=== PATIENT | male | born 1935 | race Caucasian/White ===

== ENCOUNTER 2016-04-23 13:16 | Emergency (ER) | payer OTHER ==
[~2016-04-23 13:16] MED LIST: CRDCD180 PO
[2016-04-23 13:38] VITALS: TEMP 36.9
[2016-04-23] MEDS ORDERED: SOD PHOSPHATE/SOD BIPHOSPHATE ENEMA 132 ML BTL PR STA (14:33)
[2016-04-23] MEDS ORDERED: SODIUM CHLORIDE 0.9% 1000ML 1,000 ML IV STA (14:33)
--- NOTE | 2016-04-23 14:35 | EMERGENCY ROOM VISIT NOTE ---
History Report prepared by Brionna: Maurice Juarez Under the Supervision of: Dr. Germaine Colunga M.D. First contact with patient: 14:12 Chief Complaint: CONSTIPATION Stated Complaint: CONSTIPATION Nursing Triage Summary: "I am constipated. I am prone to constipation. 3 weeks ago I became constipated after taking iron tablets. I have been trying at home remedies without relief." I had 2 hydro therapy treatments last week without relief History of Present Illness The patient is an 80 year old male who presents to the Emergency Room with complaints of persistent constipation that started 3 weeks ago. He has a history of constipation. The patient says the constipation started after taking iron tablets. He says usually he can relieve the constipation with home therapies. However, the patient has been using home therapies over the past few weeks, but nothing is working this time. The patient saw his primary care physician, and the physician's recommendation was to eat prunes and have more fiber intake. The patient did that for several days, and was able to eliminate around his blockage but he notes that he is unable to get the blockage out. His primary care physician told him to come to the Emergency Room if he was still constipated. The patient does complain of intermittent chills due to his discomfort associated with the constipation. He has gone to a colon hydrotherapist in the past, and had 2 hydro therapy treatments last week without relief. He states that in the past the hydrotherapy has worked in relieving his constipation. The patient states that the last time he went to the hydrotherapist before last week was 15 years ago. He denies any fevers. Source of History: patient Onset: 3 weeks ago Position: other (global - constipation) Timing: other (persistent) Associated Symptoms: + chills, No fevers Note: Associated symptoms: Patient notes no other associated symptoms. Review of Systems See HPI for pertinent positives & negatives. A total of 10 systems reviewed and were otherwise negative. Past Medical & Surgical Medical Problems: (1) Constipation (2) Skin problem Surgical Problems: (1) H/O removal of testicle Family History FH: heart disease Social History Smoking Status: Never Smoker Marital Status: Housing Status: lives with family Occupation Status: retired Current/Historical Medications Scheduled Diltiazem Hcl Ext Rel (Tiazac), 120 MG PO QAM Polyethylene Glycol 3350 (Miralax), 17 GM PO DAILY Allergies Coded Allergies: Ciprofloxacin (Unverified Allergy, Severe, RASH, 04/23/16) Wheat (Unverified Allergy, Intermediate, VOMITTING/INDIGESTION, 04/23/16) Quinolones (Verified Allergy, Mild, 05/04/09) Physical Exam Vital Signs Date Time Temp Pulse Resp B/P Pulse Ox O2 Delivery O2 Flow Rate FiO2 04/23/16 19:04 89 18 138/93 100 04/23/16 18:12 72 18 169/94 97 Room Air 04/23/16 13:38 36.9 86 18 154/98 99 Room Air Physical Exam CONSTITUTIONAL: No acute distress. HEENT: No icterus, moist mucous membranes NECK: No meningismus, trachea is midline. CARDIOVASCULAR: Regular rate, normal perfusion RESPIRATORY: Unlabored breathing. Clear to auscultation. GASTROINTESTINAL: Non-tender GENITOURINARY: No flank tenderness RECTAL: No impaction. MUSCULOSKELETAL: Full range of motion NEUROLOGIC: No acute gross focal deficits. PSYCHIATRIC: Normal affect SKIN: Normal for ethnicity. Medical Decision & Procedures ER Provider Diagnostic Interpretation: CT results as stated below per my review and radiologist interpretation. CT SCAN OF THE ABDOMEN AND PELVIS WITH IV CONTRAST CLINICAL HISTORY: Constipation. COMPARISON STUDY: No priors. TECHNIQUE: Following the IV administration of 91 cc of Optiray 320, CT scan of the abdomen and pelvis is performed from the lung bases to the proximal femora. Images are reviewed in the axial, sagittal, and coronal planes. IV contrast was administered without complication. Automated dose control exposure was utilized. CT DOSE: 290.96 mGy.cm FINDINGS: Lung bases: The heart is top normal in size and without pericardial effusion. The coronary arteries are densely calcified. There is mild ectasia of the ascending thoracic aorta which measures up to 4.3 cm in diameter. There is a 1.3 cm hyperdense/calcified right middle lobe pulmonary nodule seen on axial image #12. Dependent atelectasis is observed. No airspace consolidation or pleural effusion is identified. There is a moderate hiatal hernia. Liver: The contrast-enhanced liver is normal in size, contour, and attenuation. There is no intrahepatic biliary ductal dilatation. The hepatic veins and portal veins are patent. 2.7 cm indeterminant hypodensity is seen in the left lobe of the liver on axial image #82. Additional subcentimeter hepatic hypodensities are also indeterminant. Gallbladder: Unremarkable. Spleen: Normal in size and attenuation. Pancreas: Unremarkable. Adrenal glands: Unremarkable. Kidneys: There is markedly asymmetric atrophy of the right kidney as compared to the left. There is no hydronephrosis. An extrarenal pelvis is noted on the left. A 1.8 cm enhancing lesion is seen in the lower pole the right kidney on axial image #176. Additional right renal cysts measure up to 2.5 cm. Left renal cysts measure up to 1.7 cm. A 1.1 cm indeterminant lesion in the upper pole the left kidney as seen on image #129. This does not meet CT criteria for a simple cyst. The left kidney enhances homogeneously. There is a circumaortic left renal vein. Abdominal vasculature: The abdominal aorta is normal in course and caliber noting moderate to advanced atherosclerotic calcification. Bowel: Mild wall thickening and edema is identified in the rectosigmoid colon. The proximal colon is normal in appearance. There is no bowel obstruction. The appendix is well-visualized and normal. Peritoneum: There is no intraperitoneal free air or abdominal ascites. Lymphadenopathy: None. Pelvic viscera: The prostate gland is mildly enlarged, measuring 5.5 cm in transverse diameter. The bladder wall appears thickened and trabeculated suggesting the sequelae of chronic outlet obstruction. Skeletal structures: The skeletal structures are osteopenic. There is moderate lumbosacral spondylosis and scoliosis. No lytic or blastic lesions are seen. Soft tissues: There is a lipoma within the left abdominal wall musculature seen on axial image #185. This measures up to 7 cm. IMPRESSION: 1. There is mild wall thickening and edema identified in the rectum and sigmoid colon. Correlate clinically for evidence of a mild nonspecific proctocolitis. 2. No bowel obstruction is seen. 3. There is markedly asymmetric cortical atrophy of the right kidney as compared to the left. 4. There is a 1.8 cm enhancing lesion identified in the lower pole of the right kidney. This should be considered renal cell carcinomas upper abdomen otherwise. Urology follow-up is recommended. 5. A 1.1 cm indeterminant hypodensity is seen in the upper pole of the left kidney. Although this could represent a complex/hemorrhagic cyst, neoplasm is not excluded. 6. There is a 2.7 cm indeterminant hypodensity in the left lobe of the liver. 7. There is mild ectasia of the partially imaged ascending thoracic aorta which measures up to 4.3 cm diameter. 8. Moderate hiatal hernia. 9. 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 10. Additional changes as above. Electronically signed by: Pardeep Higgins M.D. 04/23/2016 6:16 PM Dictated Date/Time: 04/23/2016 6:05 PM Laboratory Results 04/23/16 15:00 Test 04/23/16 15:00 04/23/16 17:15 Anion Gap 12.0 mmol/L (3-11) Estimated GFR () 49.9 Estimated GFR (Non- 43.0 BUN/Creatinine Ratio 5.4 (10-20) Calcium Level 9.1 mg/dl (8.5-10.1) Total Bilirubin 0.7 mg/dl (0.2-1) Aspartate Amino Transf (AST/SGOT) 16 U/L (15-37) Alanine Aminotransferase (ALT/SGPT) 19 U/L (12-78) Alkaline Phosphatase 65 U/L (45-117) Total Protein 6.9 gm/dl (6.4-8.2) Albumin 3.7 gm/dl (3.4-5.0) Globulin 3.2 gm/dl (2.5-4.0) Albumin/Globulin Ratio 1.2 (0.9-2) Urine Color YELLOW Urine Appearance CLEAR (CLEAR) Urine pH 8.0 (4.5-7.5) Urine Specific Zahl 1.000 (1.000-1.030) Urine Protein NEG (NEG) Urine Glucose (UA) NEG (NEG) Urine Ketones NEG (NEG) Urine Occult Blood NEG (NEG) Urine Nitrite NEG (NEG) Urine Bilirubin NEG (NEG) Urine Urobilinogen NEG (NEG) Urine Leukocyte Esterase NEG (NEG) Labs reviewed by ED physician. Medications Administered Medications (Trade) Dose Ordered Sig/Osiris Route Start Time Stop Time Status Last Admin Dose Admin Sodium Biphosphate/ Sodium Phosphate 132 ml 132 ml NOW STAT CO 04/23/16 14:33 04/23/16 14:37 DC 04/23/16 15:09 132 ML Sodium Chloride (Nss 1000ml) 1,000 ml @ 0 mls/hr Q0M STAT IV 04/23/16 14:33 04/23/16 14:37 DC 1/25/17 14:33 0 MLS/HR ED Course 1421: Past medical records reviewed. The patient was evaluated in room B9. A complete history and physical examination was performed. 1433: Ordered NSS 1000 ml @ 0 mls/hr Wide Open IV, Fleet Enema 132 ml CO. 1859: I reevaluated the patient and he is resting comfortably. The patient verbally expressed agreement and understanding of the treatment plan. The patient will be discharged. Medical Decision Differential diagnoses include: constipation, diverticulitis, kidney stone. 80-year-old presented to the emergency department for worsening constipation for several weeks not resolved with an bowel cleansing done by a local spa service. He denies any vomiting or other abdominal pain although he notes mild left lower quadrant discomfort. CT did not reveal obstruction or other obvious acute abnormalities although his mild inflammation possibility of the prostate. Discussed treatment options and patient declined quinolone therapy stating severe allergy in the past. We specifically discussed the small lesions in both kidneys and liver. Patient has a prior history of testicular cancer and states he has known problems with these organs but is not specific as to what those problems are. I discussed with both him and his the possibility of a new cancer in the critical importance of prompt follow-up with the primary doctor to discuss the CAT scan report he was given by me in the emergency department. These abnormal findings were circled to make clear to him what points to discuss with the primary doctor. He was advised to take MiraLAX as needed for constipation pending further conversation with the primary Impression Primary Impression: Constipation Scribe Attestation The scribe's documentation has been prepared under my direction and personally reviewed by me in its entirety. I confirm that the note above accurately reflects all work, treatment, procedures, and medical decision making performed by me. Departure Information Dispostion Home / Self-Care Prescriptions Polyethylene Glycol 3350 (MIRALAX) 1 Pow Pow 17 GM PO DAILY, #527 GM Prov: Germaine Colunga MD 04/23/16 Referrals Antonio Mills M.D. (PCP) Forms HOME CARE DOCUMENTATION FORM, IMPORTANT VISIT INFORMATION Patient Instructions My [facility] Additional Instructions Follow-up with your doctor, CALL TOMORROW, and specifically discuss your CT report you were given in the ED. PLEASE note your quinolone allergy.
[2016-04-23] MEDS ORDERED: DILT120C68 PO (14:48)
[2016-04-23 15:35] LABS: ALT/SGPT 19 U/L (12-78); AST/SGOT 16 U/L (15-37); BLOOD UREA NITROGEN 8 mg/dl (7-18); BUN/CREATININE RATIO 5.4 (10-20); CALCIUM 9.1 mg/dl (8.5-10.1); CARBON DIOXIDE 24 mmol/L (21-32); CHLORIDE 99 mmol/L (98-107); GLUCOSE 114 mg/dl (70-99); POTASSIUM 3.7 mmol/L (3.5-5.1); SODIUM 135 mmol/L (136-145)
[2016-04-23 15:38] LABS: ALB/GLOB RATIO 1.2 (0.9-2); ALKALINE PHOSPHATASE 65 U/L (45-117)
[2016-04-23] MEDS ORDERED: OPTIRAY 320 IV PRN (16:00)
[2016-04-23 17:32] LABS: URINE APPEARANCE CLEAR (CLEAR); URINE BILIRUBIN NEG (NEG); URINE COLOR YELLOW; URINE NITRITE NEG (NEG); UROBILINOGEN NEG (NEG); ZZUR CULT IF INDIC CLEAN CATCH NO
[2016-04-23 17:42] LABS: MANUAL MICROSCOPIC REQUIRED? NO; REVIEW REQ? NO
--- NOTE | 2016-04-23 18:18 | DIAGNOSTIC IMAGING REPORT ---
CT SCAN OF THE ABDOMEN AND PELVIS WITH IV CONTRAST CLINICAL HISTORY: Constipation. COMPARISON STUDY: No priors. TECHNIQUE: Following the IV administration of 91 cc of Optiray 320, CT scan of the abdomen and pelvis is performed from the lung bases to the proximal femora. Images are reviewed in the axial, sagittal, and coronal planes. IV contrast was administered without complication. Automated dose control exposure was utilized. CT DOSE: 290.96 mGy.cm FINDINGS: Lung bases: The heart is top normal in size and without pericardial effusion. The coronary arteries are densely calcified. There is mild ectasia of the ascending thoracic aorta which measures up to 4.3 cm in diameter. There is a 1.3 cm hyperdense/calcified right middle lobe pulmonary nodule seen on axial image #12. Dependent atelectasis is observed. No airspace consolidation or pleural effusion is identified. There is a moderate hiatal hernia. Liver: The contrast-enhanced liver is normal in size, contour, and attenuation. There is no intrahepatic biliary ductal dilatation. The hepatic veins and portal veins are patent. 2.7 cm indeterminant hypodensity is seen in the left lobe of the liver on axial image #82. Additional subcentimeter hepatic hypodensities are also indeterminant. Gallbladder: Unremarkable. Spleen: Normal in size and attenuation. Pancreas: Unremarkable. Adrenal glands: Unremarkable. Kidneys: There is markedly asymmetric atrophy of the right kidney as compared to the left. There is no hydronephrosis. An extrarenal pelvis is noted on the left. A 1.8 cm enhancing lesion is seen in the lower pole the right kidney on axial image #176. Additional right renal cysts measure up to 2.5 cm. Left renal cysts measure up to 1.7 cm. A 1.1 cm indeterminant lesion in the upper pole the left kidney as seen on image #129. This does not meet CT criteria for a simple cyst. The left kidney enhances homogeneously. There is a circumaortic left renal vein. Abdominal vasculature: The abdominal aorta is normal in course and caliber noting moderate to advanced atherosclerotic calcification. Bowel: Mild wall thickening and edema is identified in the rectosigmoid colon. The proximal colon is normal in appearance. There is no bowel obstruction. The appendix is well-visualized and normal. Peritoneum: There is no intraperitoneal free air or abdominal ascites. Lymphadenopathy: None. Pelvic viscera: The prostate gland is mildly enlarged, measuring 5.5 cm in transverse diameter. The bladder wall appears thickened and trabeculated suggesting the sequelae of chronic outlet obstruction. Skeletal structures: The skeletal structures are osteopenic. There is moderate lumbosacral spondylosis and scoliosis. No lytic or blastic lesions are seen. Soft tissues: There is a lipoma within the left abdominal wall musculature seen on axial image #185. This measures up to 7 cm. IMPRESSION: 1. There is mild wall thickening and edema identified in the rectum and sigmoid colon. Correlate clinically for evidence of a mild nonspecific proctocolitis. 2. No bowel obstruction is seen. 3. There is markedly asymmetric cortical atrophy of the right kidney as compared to the left. 4. There is a 1.8 cm enhancing lesion identified in the lower pole of the right kidney. This should be considered renal cell carcinomas upper abdomen otherwise. Urology follow-up is recommended. 5. A 1.1 cm indeterminant hypodensity is seen in the upper pole of the left kidney. Although this could represent a complex/hemorrhagic cyst, neoplasm is not excluded. 6. There is a 2.7 cm indeterminant hypodensity in the left lobe of the liver. 7. There is mild ectasia of the partially imaged ascending thoracic aorta which measures up to 4.3 cm diameter. 8. Moderate hiatal hernia. 9. 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 10. Additional changes as above. Electronically signed by: Pardeep Higgins M.D. 04/23/2016 6:16 PM Dictated Date/Time: 04/23/2016 6:05 PM
[2016-04-23] MEDS ORDERED: POLY335019 PO (18:57)
[2016-04-23 19:04] VITALS: BP 138/93; PULSE 89; O2SAT 100
== END 2016-04-23 19:04 | disposition home or self-care (01) ==
LOC: C.EDB 13:22
DX: K59.00 Constipation, unspecified (principal); Z85.47 Personal history of malignant neoplasm of testis; Z79.899 Other long term (current) drug therapy

== ENCOUNTER 2018-10-03 09:52 | Inpatient (IN) ==
--- OUTSIDE RECORDS SUMMARY | 2018-10-03 09:54 | External Medical Summary | Continuity of Care Document ---
:1935 Author Name Chris Bermudez Address Unavailable Unavailable , Care Team Providers Name Role Phone Unavailable Unavailable Unavailable Problems Active medical history not documented Allergies and Adverse Reactions Allergy history not documented Medications Medications not documented Procedures Procedures not documented Immunizations Immunizations not documented Plan of Treatment Planned Observations Planned Goals not documented Results No Known Results Results not documented
[2018-10-03 10:30] LABS: Basophils # (auto) 0.03 K/uL (0-0.2); Basophils % (auto) 0.3 %; Eosinophils # (auto) 0.06 K/uL (0-0.5); Eosinophils % (auto) 0.6 %; Hematocrit (blood only) 42.4 % (42-52); Hemoglobin 15.1 g/dL (14.0-18.0); Immature Granulocytes # (auto) 0.02 K/uL (0.00-0.02); Immature Granulocytes % (auto) 0.2 %; Lymphocytes # (auto) 2.14 K/uL (1.2-3.4); Lymphocytes % (auto) 23.1 %; Mean Corpuscular Hgb Conc 35.6 g/dL (32-36); Mean Corpuscular Volume 92.4 fL (80-100); Mean Platelet Volume 8.8 fL (7.4-10.4); Monocytes # (auto) 0.53 K/uL (0.11-0.59); Monocytes % (auto) 5.7 %; Neutrophils # (auto) 6.49 K/uL (1.4-6.5); Neutrophils % (auto) 70.1 %; Platelet Count 191 K/uL (130-400); RDW Coefficient of Variation 13.4 % (11.5-14.5); RDW Standard Deviation 45.4 fL (36.4-46.3); Red Blood Count 4.59 M/uL (4.7-6.1); White Blood Count 9.27 K/uL (4.8-10.8)
--- NOTE | 2018-10-03 10:38 | XRay Report ---
XR chest 1V portable HISTORY: 83 years-old Male Chest Pain acute atypical chest pain COMPARISON: Chest radiograph 02/21/2008, CT abdomen and pelvis 04/23/2016 TECHNIQUE: Portable AP view of the chest FINDINGS: Cardiomediastinal and hilar silhouettes are within normal limits. Unchanged calcified granuloma of th e right lower lobe. Probable additional calcified granuloma of the left lung base, 4 mm. No pneumotho rax, pleural effusion, focal airspace consolidation or overt pulmonary edema. Degenerative changes of the shoulders and spine. IMPRESSION: 1. No acute process. 2. Prior granulomatous disease. The above report was generated using voice recognition software. It may contain grammatical, syntax o r spelling errors. Electronically signed by: Dhruv Alexander M.D. 10/03/2018 10:37 AM
[2018-10-03 10:41] LABS: Albumin Level 3.8 gm/dl (3.4-5.0); BUN Creatinine Ratio 12.3 (10-20); Calcium 9.2 mg/dl (8.5-10.1); Creatinine Clr Calc Pharmacy 36.4 ml/min; Est GFR (African American) 52.6; Est GFR (Non-African American) 45.4; Potassium 3.5 mmol/L (3.5-5.1)
[2018-10-03 10:49] LABS: Albumin Globulin Ratio 1.1 (0.9-2); Bilirubin,Total 0.6 mg/dl (0.2-1); Globulin 3.5 gm/dl (2.5-4.0); Total Protein 7.3 gm/dl (6.4-8.2); Troponin I 9.19 ng/ml (0-0.045)
[2018-10-03] MEDS ORDERED: ASPIRIN 81 MG CHEW PO STA (10:57)
[2018-10-03] MEDS ORDERED: Heparin IV Low Dose WITH Bolus STA (11:13)
[2018-10-03] MEDS ORDERED: METOPROLOL TARTRATE 1 MG/ML VIAL IV STA (11:13)
[2018-10-03] MEDS ORDERED: Heparin BOLUS **ED Use Only IV STA (11:21)
--- NOTE | 2018-10-03 11:24 | Emergency Department Note ---
History of Present Illness General Chief complaint: Chest Pain Stated complaint: CHEST PAIN, PAIN IN RT ARM Time Seen by Provider: 10/03/18 10:03 Source: patient and family Mode of arrival: ambulatory Limitations: no limitations History of Present Illness Maximum Pain Intensity: 73 This 83-year-old white male presents with his , for evaluation of right- sided chest and clavicle pain that began last evening. He has had intermittent symptoms since last Thursday. He describes some intermittent nausea, but no vom iting. He denies any scot chest pain. No upper back pain. He does note some tenderness around his shoulder blade. Patient was recently treated for Lyme disease with 3 weeks of doxycycline, which he finished last Thursday. He did get some nausea with that medication and thought his current nausea was residual. His collarbone pain was rather acute last night and intense. He states it is not as bad now as it was last night. It is still focal and reproducible with touch. Right-hand dominant. Home Medications Home Medications Medication Instructions Recorded Confirmed Type [facility] 1 - 2 tab PO PM 10/03/18 10/03/18 History Probiotic 1 cap PO PM 10/03/18 10/03/18 History coenzyme Q10 [CoQ-10] 30 mg PO PM 10/03/18 10/03/18 History garlic 500 mg PO PM 10/03/18 10/03/18 History lutein 20 mg PO PM 10/03/18 10/03/18 History multivitamin 1 tab PO QAM 10/03/18 10/03/18 History omega 5-nbi-lqa-fish oil [Fish Oil] 1 cap PO PM 10/03/18 10/03/18 History aspirin [Ecotrin Low Strength] 81 mg PO QAM 30 Days #30 tab 10/05/18 Rx atorvastatin 40 mg PO QAM 30 Days #30 tab 10/05/18 Rx clopidogrel 75 mg PO QAM 30 Days #30 tab 10/05/18 Rx famotidine 20 mg PO DAILY 30 Days #30 tab 10/05/18 Rx metoprolol tartrate 25 mg PO BID 30 Days #60 tab 10/05/18 Rx nitroglycerin [Nitrostat] 0.4 mg SUBLINGUAL UD PRN #30 tab 10/05/18 Rx Allergies Allergy/AdvReac Type Severity Reaction Status Date / Time Cipro Allergy Severe RASH Unverified 04/23/16 14:46 ciprofloxacin Allergy Severe RASH Unverified 10/03/18 10:21 wheat Allergy Intermediate VOMITTING/I Unverified 10/03/18 10:21 NDIGESTION Quinolones Allergy Mild Verified 10/03/18 10:21 Past Med/Surg History Medical History CKD (chronic kidney disease), stage III Colon cancer HTN (hypertension), benign Testicular cancer Surgical History History of orchiectomy Family History Mother Heart disease Social History Preferred Language: Persian Communication Ability: Effective Neon Sign Mechanic Required: No Beliefs That Will Affect Care: None Current Living Situation: Spouse Other Information That Helps Us Care for You: No Feels Safe at Home: Yes Safety Concerns: Feels Safe At This Time Smoking Status: Never smoker Do You Dip or Chew Tobacco: No Second Hand Exposure: No Tobacco Cessation Education Requested by Patient: No Hx Alcohol Use: Yes Hx Substance Use: No Review of Systems A total of 10 systems reviewed and were otherwise negative Physical Exam Vital Signs Vital Signs - 24 hr 10/03/18 09:53 10/03/18 10:30 Temperature 36.5 C Temperature Source Oral Sepsis Recent Fever Within 48 Hours No Sepsis New/Unexplained Change in Mental Status No Sepsis Action Taken by Nursing No Action Required Pulse Rate 96 H Respiratory Rate 18 Respiratory Effort / Characteristics Non-Labored Spontaneous Respiratory Depth Normal Respiratory Pattern Regular Blood Pressure 159/101 H Blood Pressure Mean 120 Blood Pressure Position Sitting Pulse Oximetry 99 99 Oxygen Delivery Method Room Air Room Air General: Well-developed, elderly white male, in no acute distress. Laying on a bed. Alert and oriented. Skin: Warm and dry with fair turgor. No rashes or lesions. No ecchymosis or erythema. The patient is not diaphoretic. No abrasions. HEENT: Normocephalic atraumatic. Eyes PERRLA, EOMI. No conjunctiva or scleral injection. Nares patent bilaterally without turbinate enlargement. No significant drainage. No epistaxis. Oropharynx without erythema or exudate. Uvula midline, oral mucosa moist. No lesions present. Lymphatics are palpated without anterior or posterior chain enlargement or tenderness. Heart: Heart RRR. No MGR. Peripheral pulses are 2+. Lungs: Lungs are clear to auscultation. No crackles rhonchi or wheezing. Good air movement. The patient is able to take a deep breath. Abdomen: Abdomen was inspected, auscultated, and palpated. Bowel sounds present x 4. Soft, nontender to palpation. No hepato-splenomegaly. No masses noted. No CVA tenderness. Musculoskeletal: Gross motor function of the upper and lower extremities is intact and unremarkable. Obvious arthritic changes in his hands and knees. Neurologic: Gross sensation is intact across the upper and lower extremities by soft touch. Course Administered Medications Discontinued Medications Al Hydrox/Mg Hydrox/Simethicone (Maalox Max) 15 ml PO Q6H PRN PRN Reason: Dyspepsia Stop: 11/02/18 20:07 Last Admin: 10/03/18 20:18 Dose: 15 ml Documented by: [id number] Aspirin (Aspirin Chew) 324 mg PO [facility] Stop: 10/03/18 10:58 Last Admin: 10/03/18 11:02 Dose: 324 mg Documented by: [id number] Aspirin (Ecotrin Ectab) 81 mg PO [facility] Stop: 11/03/18 08:59 Last Admin: 10/05/18 07:49 Dose: 81 mg Documented by: [id number] Admin: 10/04/18 08:57 Dose: 81 mg Documented by: [id number] Atorvastatin Calcium (Lipitor) 40 mg PO [facility] Stop: 11/03/18 08:59 Last Admin: 10/05/18 07:49 Dose: 40 mg Documented by: [id number] Admin: 10/04/18 08:57 Dose: 40 mg Documented by: [id number] Clopidogrel Bisulfate (Plavix) Confirm Administered Dose 600 mg .ROUTE .[facility] ONE Stop: 10/04/18 12:09 Last Admin: 10/04/18 12:17 Dose: 600 mg Documented by: [id number] Clopidogrel Bisulfate (Plavix) 75 mg PO [facility] Stop: 11/04/18 08:59 Last Admin: 10/05/18 07:49 Dose: 75 mg Documented by: [id number] Famotidine (Pepcid) 20 mg PO BID [facility] Stop: 11/03/18 08:59 Last Admin: 10/05/18 07:49 Dose: 20 mg Documented by: [id number] Admin: 10/04/18 21:10 Dose: 20 mg Documented by: [id number] Admin: 10/04/18 08:57 Dose: 20 mg Documented by: [id number] Fentanyl Citrate (Fentanyl Citrate) Confirm Administered Dose 100 mcg .ROUTE .ST[facility]-MED ONE Stop: 10/04/18 10:33 Last Increment: 10/04/18 12:15 Dose: 25 mcg Documented by: [id number] Heparin Sodium (Porcine) (Heparin Iv Bolus) 4,000 units IV NOW [facility] Stop: 10/03/18 11:22 Last Admin: 10/03/18 11:37 Dose: 4,000 units Documented by: [id number] Cosigned by: [id number] Heparin Sodium (Porcine) (Heparin Iv Bolus (Tile Setter Use Only)) Confirm Administered Dose 10,000 units .ROUTE .STK-MED ONE Stop: 10/04/18 10:34 Last Admin: 10/04/18 12:16 Dose: 7,000 units Documented by: [id number] Heparin Sodium/Dextrose () 1 ea N/A [facility]; Protocol Stop: 10/03/18 11:14 Last Admin: 10/03/18 11:40 Dose: Not Given Documented by: [id number] Heparin Sodium/Dextrose () 1 ea IV Q30M [facility]; Protocol Stop: 10/03/18 16:00 Last Admin: 10/05/18 10:16 Dose: Not Given Documented by: [id number] Admin: 10/05/18 09:22 Dose: Not Given Documented by: [id number] Admin: 10/05/18 09:21 Dose: Not Given Documented by: [id number] Admin: 10/03/18 18:49 Dose: 1 ea Documented by: [id number] Heparin Sodium/Sodium Chloride (Heparin/Nss 1000 Unit/500ml Flush Bag) Confirm Administered Dose 3,000 units IV .STK-MED ONE Stop: 10/04/18 10:34 Last Admin: 10/04/18 12:17 Dose: 3,000 units Documented by: [id number] Heparin Sodium/Dextrose (Heparin Sodium/Dextrose) 25,000 units in 500 mls @ 24 mls/hr IV .[id number] [facility]; Protocol Stop: 11/02/18 11:29 Last Titration: 10/05/18 07:03 Dose: 0 units/hr, 0 mls/hr Documented by: [id number] Cosigned by: [id number] Admin: 10/03/18 11:38 Dose: 800 units/hr, 16 mls/hr Documented by: [id number] Cosigned by: [id number] Potassium Chloride/Sodium Chloride (Normal Saline W/20 Meq Kcl) 20 meq in 1,000 mls @ 50 mls/hr IV .Q20H [facility] Stop: 11/02/18 13:59 Last Infusion: 10/04/18 10:21 Dose: 0 mls/hr Documented by: [id number] Admin: 10/04/18 10:19 Dose: Not Given Documented by: [id number] Infusion: 10/03/18 23:39 Dose: 0 mls/hr Documented by: [id number] Admin: 10/03/18 14:00 Dose: 50 mls/hr Documented by: [id number] Sodium Chloride (Nss 1000ml) 1,000 mls @ 75 mls/hr IV .[id number] [facility] Stop: 11/02/18 23:58 Last Infusion: 10/04/18 09:00 Dose: 0 mls/hr Documented by: [id number] Admin: 10/03/18 23:39 Dose: 75 mls/hr Documented by: [id number] Heparin Sodium/Dextrose (Heparin Sodium/Dextrose) 25,000 units in 500 mls @ 0 mls/hr IV .Q0M [facility]; Protocol Stop: 11/02/18 15:59 Last Titration: 10/04/18 15:27 Dose: 0 units/hr, 0 mls/hr Documented by: [id number] Cosigned by: [id number] Titration: 10/04/18 11:02 Dose: 0 units/hr, 0 mls/hr Documented by: [id number] Cosigned by: [id number] Titration: 10/04/18 09:02 Dose: 850 units/hr, 17 mls/hr Documented by: [id number] Cosigned by: [id number] Titration: 10/04/18 08:32 Dose: 0 units/hr, 0 mls/hr Documented by: [id number] Cosigned by: [id number] Titration: 10/04/18 01:00 Dose: 1,000 units/hr, 20 mls/hr Documented by: [id number] Cosigned by: [id number] Admin: 10/03/18 18:49 Dose: 1,150 units/hr, 23 mls/hr Documented by: [id number] Cosigned by: [id number] Titration: 10/03/18 18:49 Dose: 1,150 units/hr, 23 mls/hr Documented by: [id number] Cosigned by: [id number] Titration: 10/03/18 18:11 Dose: 1,150 units/hr, 23 mls/hr Documented by: [id number] Cosigned by: [id number] Admin: 10/03/18 16:00 Dose: 1,200 units/hr, 24 mls/hr Documented by: [id number] Cosigned by: [id number] Famotidine 20 mg/ Syringe 5 mls @ 2.5 mls/min IV [facility] Stop: 10/03/18 20:11 Last Admin: 10/03/18 20:28 Dose: 2.5 mls/min Documented by: [id number] Sodium Chloride (Nss 1000ml) 1,000 mls @ 65 mls/hr IV .[id number] [facility] Stop: 10/05/18 00:23 Last Infusion: 10/05/18 02:07 Dose: 0 mls/hr Documented by: [id number] Admin: 10/04/18 09:05 Dose: 65 mls/hr Documented by: [id number] Sodium Chloride (Nss 1000ml) 250 mls @ 999 mls/hr IV .Q16M ONE Stop: 10/04/18 19:37 Last Infusion: 10/04/18 19:35 Dose: 0 mls/hr Documented by: [id number] Admin: 10/04/18 19:15 Dose: 999 mls/hr Documented by: [id number] Sodium Chloride (Nss 1000ml) 1,000 mls @ 100 mls/hr IV .Q10H [facility] Stop: 11/03/18 19:39 Last Infusion: 10/05/18 09:50 Dose: 0 mls/hr Documented by: [id number] Admin: 10/05/18 04:14 Dose: 100 mls/hr Documented by: [id number] Infusion: 10/05/18 04:14 Dose: 100 mls/hr Documented by: [id number] Admin: 10/04/18 19:30 Dose: 100 mls/hr Documented by: [id number] Metoprolol Tartrate (Lopressor) 5 mg IV [facility] Stop: 10/03/18 11:14 Last Admin: 10/03/18 11:29 Dose: Not Given Documented by: [id number] Metoprolol Tartrate (Lopressor) 25 mg PO ONE ONE Stop: 10/03/18 12:30 Last Admin: 10/03/18 12:47 Dose: 25 mg Documented by: [id number] Metoprolol Tartrate (Lopressor) 25 mg PO BID [facility] Stop: 11/02/18 20:59 Last Admin: 10/05/18 07:49 Dose: 25 mg Documented by: [id number] Admin: 10/04/18 21:12 Dose: Not Given Documented by: [id number] Admin: 10/04/18 08:57 Dose: 25 mg Documented by: [id number] Admin: 10/03/18 20:18 Dose: 25 mg Documented by: [id number] Midazolam HCl (Versed) Confirm Administered Dose 2 mg .ROUTE .STK-MED ONE Stop: 10/04/18 10:33 Last Admin: 10/04/18 12:16 Dose: 2 mg Documented by: [id number] Nicardipine HCl (Cardene) Confirm Administered Dose 25 mg .ROUTE .STK-MED ONE Stop: 10/04/18 10:34 Last Admin: 10/04/18 12:16 Dose: 25 mg Documented by: [id number] Nitroglycerin/Dextrose (Nitroglycerin/D5w 100 Mcg/Ml 20ml Syringe) Confirm Administered Dose 2,000 mcg .ROUTE .STK-[facility] ONE Stop: 10/04/18 10:34 Last Admin: 10/04/18 12:17 Dose: 2,000 mcg Documented by: [id number] Medical Decision Making Differential Diagnosis Muscle strain, pleurisy, ACS, AR, pneumonia Medical Records Attestation: I reviewed the patient's medical records. Home Medications Current Medication List: was personally reviewed by me Laboratory Data Attestation: I reviewed the patient's lab results. CBC, chemistry panel, PT/INR, troponin, CK/CK-MB, and lipase were obtained. WBCs are normal at 9.27. CBC is otherwise unremarkable. Chemistry panel shows top normal BUN at 17 and creatinine at 1.4. AST mildly elevated at 74. ALT normal at 24. Troponin is significantly elevated at 9.19. Total CK is sign ificantly elevated at 704. MB fraction is elevated at 93. Lipase normal at 128. INR 1.0. Result diagrams: 10/04/18 03:57 10/05/18 06:53 Lab Results 10/03/18 10/03/18 10/03/18 Range/Units 10:06 10:06 10:06 WBC 9.27 (4.8-10.8) K/uL RBC 4.59 L (4.7-6.1) M/uL Hgb 15.1 (14.0-18.0) g/dL Hct 42.4 (42-52) % MCV 92.4 (80-100) fL MCH 32.9 (25-34) pg MCHC 35.6 (32-36) g/dL RDW Std Deviation 45.4 (36.4-46.3) fL RDW Coeff of Jeffry 13.4 (11.5-14.5) % Plt Count 191 (130-400) K/uL MPV 8.8 (7.4-10.4) fL Immature Gran % (Auto) 0.2 % Neut % (Auto) 70.1 % Lymph % (Auto) 23.1 % [place] % (Auto) 5.7 % Eos % (Auto) 0.6 % Baso % (Auto) 0.3 % Immature Gran # (Auto) 0.02 (0.00-0.02) K/uL Neut # (Auto) 6.49 (1.4-6.5) K/uL Lymph # (Auto) 2.14 (1.2-3.4) K/uL [place] # (Auto) 0.53 (0.11-0.59) K/uL Eos # (Auto) 0.06 (0-0.5) K/uL Baso # (Auto) 0.03 (0-0.2) K/uL PT (9.0-12.0) Seconds INR (0.9-1.1) Sodium 134 L (136-145) mmol/L Potassium 3.5 (3.5-5.1) mmol/L Chloride 99 (98-107) mmol/L Carbon Dioxide 25 (21-32) mmol/L Anion Gap 10.0 (3-11) BUN 17 (7-18) mg/dl Creatinine 1.41 H (0.6-1.4) mg/dl Est Cr Clr Drug Dosing 36.4 ml/min Est GFR ( Amer) 52.6 Est GFR (Non-Af Amer) 45.4 BUN/Creatinine Ratio 12.3 (10-20) Glucose 102 H (70-99) mg/dl Calcium 9.2 (8.5-10.1) mg/dl Total Bilirubin 0.6 (0.2-1) mg/dl AST 74 H (15-37) U/L ALT 24 (12-78) U/L Alkaline Phosphatase 55 (45-117) U/L Total Creatine Kinase 704 H Cancelled (39-308) U/L CK-MB (CK-2) 93.0 H Cancelled (0.5-3.6) ng/ml CK/CKMB % Calc 13.2 H Cancelled (0-3.0) Troponin I 9.190 H* (0-0.045) ng/ml Total Protein 7.3 (6.4-8.2) gm/dl Albumin 3.8 (3.4-5.0) gm/dl Globulin 3.5 (2.5-4.0) gm/dl Albumin/Globulin Ratio 1.1 (0.9-2) Lipase 128 (73-393) U/L 10/03/18 Range/Units 10:06 WBC (4.8-10.8) K/uL RBC (4.7-6.1) M/uL Hgb (14.0-18.0) g/dL Hct (42-52) % MCV (80-100) fL MCH (25-34) pg MCHC (32-36) g/dL RDW Std Deviation (36.4-46.3) fL RDW Coeff of Jeffry (11.5-14.5) % Plt Count (130-400) K/uL MPV (7.4-10.4) fL Immature Gran % (Auto) % Neut % (Auto) % Lymph % (Auto) % [place] % (Auto) % Eos % (Auto) % Baso % (Auto) % Immature Gran # (Auto) (0.00-0.02) K/uL Neut # (Auto) (1.4-6.5) K/uL Lymph # (Auto) (1.2-3.4) K/uL [place] # (Auto) (0.11-0.59) K/uL Eos # (Auto) (0-0.5) K/uL Baso # (Auto) (0-0.2) K/uL PT 10.7 (9.0-12.0) Seconds INR 1.0 (0.9-1.1) Sodium (136-145) mmol/L Potassium (3.5-5.1) mmol/L Chloride (98-107) mmol/L Carbon Dioxide (21-32) mmol/L Anion Gap (3-11) BUN (7-18) mg/dl Creatinine (0.6-1.4) mg/dl Est Cr Clr Drug Dosing ml/min Est GFR ( Amer) Est GFR (Non-Af Amer) BUN/Creatinine Ratio (10-20) Glucose (70-99) mg/dl Calcium (8.5-10.1) mg/dl Total Bilirubin (0.2-1) mg/dl AST (15-37) U/L ALT (12-78) U/L Alkaline Phosphatase (45-117) U/L Total Creatine Kinase (39-308) U/L CK-MB (CK-2) (0.5-3.6) ng/ml CK/CKMB % Calc (0-3.0) Troponin I (0-0.045) ng/ml Total Protein (6.4-8.2) gm/dl Albumin (3.4-5.0) gm/dl Globulin (2.5-4.0) gm/dl Albumin/Globulin Ratio (0.9-2) Lipase (73-393) U/L Imaging Data Attestation: I personally reviewed and interpreted this imaging study as follows: Radiologist's Impression: Chest x-ray obtained today was reviewed by me and read by radiology. No acute disease. Granulomatous changes are present. ECG Data Attestation: I personally reviewed and interpreted this ECG as follows: Additional Comments: EKG obtained today was reviewed by me, with Dr. Lomeli. Normal sinus rhythm with a rate of 74, with sinus arrhythmia. ST depression present in leads V2 through V5. When compared with ECG of 21-FEB-2008, ST now depressed in Anterior leads Blood Pressure Blood Pressure Findings: Normal blood pressure MDM Narrative Patient was evaluated in B6. IV was established. Labs were obtained. EKG and chest x-ray were also obtained. Given his ST depressions on EKG, troponin and CK/CK-MB were obtained. These are found to be significantly elevated. I suspect that the patient actually had an AR last evening. He certainly has an atypical presentation. He remained stable while in the ED. There was no scot chest pain. He was given aspirin 324 mg orally to be chewed. Metoprolol 5 mg IV was also ordered, but the patient was noted to be bradycardic and this was held. Heparin bolus and drip per protocol were initiated after talking with the hospitalist. Right pectoral and clavicle pain were reproducible by palpation. Hospitalist service was contacted for admission. Please see that dictation for final management. I also spoke briefly with Dr. Jain from cardiology, who will follow the patient today while in the hospital. Patient was seen in conjunction with Dr. Lomeli, who also evaluated the patient and concurred with today's diagnosis and treatment plan. Impression & Plan NSTEMI (non-ST elevated myocardial infarction) Discharge Plan Visit Data *Final* Discharge Date/Time: 10/03/18 12:59 Chief Complaint: Chest Pain Stated Complaint: CHEST PAIN, PAIN IN RT ARM ED Provider: Les Lomeli ED Midlevel Provider: Sharif Lanier Discharge Problem: NSTEMI (non-ST elevated myocardial infarction) Patient Disposition: Admitted As Inpatient Discharge Instructions Interventions: ED Discharge Assessment Last Done: 10/03/18 12:59
[2018-10-03] MEDS ORDERED: Heparin Adult LOW DOSE Wt-Based Dextrose 5% 25,000 units/500 mL IV SCH (11:30)
--- NOTE | 2018-10-03 11:30 | History & Physical Report ---
Date of Service October 03, 2018 Assessment & Plan (1) NSTEMI (non-ST elevated myocardial infarction): NSTEMI: Risk factors: HTN, family history of heart disease Initial troponin:Elevated at 9.1 EKG shows: ST depression in anterior leads CXR:Prior granulomatous disease. ECHO: No segmental wall motion abnormality Trend serial cardiac enzymes, repeat EKG, fasting lipid panel in AM Start Aspirin, statins, Metoprolol, heparin ggt Check ESR Oxygen PRN Planned for Cardiac Cath in AM NPO after midnight Appreciate Cardiology Input Memory Problems: No focal deficits on exam Check TSH, vitamin B12 levels May need further evaluation by neurology as outpatient CKD III: Cr at baseline Avoid nephrotoxic agents as able Monitor renal function Gentle IV fluids as planned for Cardiac Cath H/O metastatic Testicular Cancer S/P Orchiectomy, chemotherapy Followed with and in the past Hypertension Cardizem discontinued Started on metoprolol Monitor DVT Px: SCDs for now Code Status: Full Code Disposition: Expect to discharge home when stable History of Present Illness Chief Complaint: Patient is an 83-year-old male with history of hypertension, CKD stage III, t esticular cancer, colon cancer, hearing loss and other problems presents for evaluation of right-sided chest pain, generalized weakness, "mental fuzziness", forgetfulness. Patient describes chest pain to be like heaviness, intermittent and reproducible. He had a 2-3 episodes of right-sided chest pain last week. He states it has been progressively getting worse last night. He states the chest pain is located on right infraclavicular region. Reports associated nausea but denies vomiting. He was diagnosed to have Lyme's disease 4 weeks ago and has completed 3-week course of doxycycline. He states having intermittent nausea, dizziness while taking the doxycycline but currently dizziness resolved. Patient's family also reports that patient has been forgetful, has been napping 1-2 times per day which is unusual for him since being diagnosed to have Lyme's disease. Denies any history of SOB, palpitations, pedal edema, diaphoresis, cough, fever, chills, headache, change in vision, vomiting, abdominal pain, blood in stools, diarrhea, dysuria, recent change in medications. He was noted to have elevated troponin levels, and ST depression in anterior leads. Patient was started on heparin while in ED. Primary Care Provider: Antonio Mills MD Allergies Allergy/AdvReac Type Severity Reaction Status Date / Time Cipro Allergy Severe RASH Unverified 04/23/16 14:46 ciprofloxacin Allergy Severe RASH Unverified 10/03/18 10:21 wheat Allergy Intermediate VOMITTING/I Unverified 10/03/18 10:21 NDIGESTION Quinolones Allergy Mild Verified 10/03/18 10:21 Home Medications Home Medications Medication Instructions Recorded Confirmed Type diltiazem HCl 120 mg PO QAM #0 cap 04/23/16 10/03/18 History A-C-E-zinc ox-cupric ox-lutein 1 - 2 tab PO PM 10/03/18 10/03/18 History [[facility]] Lactobac 40-Bifido 3-S.thermop 1 cap PO PM 10/03/18 10/03/18 History [Probiotic] coenzyme Q10 [CoQ-10] 30 mg PO PM 10/03/18 10/03/18 History garlic 500 mg PO PM 10/03/18 10/03/18 History lutein 20 mg PO PM 10/03/18 10/03/18 History multivitamin 1 tab PO QAM 10/03/18 10/03/18 History omega 7-suh-tje-fish oil [Fish Oil] 1 cap PO PM 10/03/18 10/03/18 History Past Med/Surg History Medical History CKD (chronic kidney disease), stage III Colon cancer HTN (hypertension), benign Testicular cancer Surgical History History of orchiectomy Family History Mother Heart disease Social History Preferred Language: Cameroonian Communication Ability: Effective 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 Beliefs That Will Affect Care: None Current Living Situation: Spouse Other Information That Helps Us Care for You: No Feels Safe at Home: Yes Safety Concerns: Feels Safe At This Time Smoking Status: Never smoker Do You Dip or Chew Tobacco: No Second Hand Exposure: No Tobacco Cessation Education Requested by Patient: No Hx Alcohol Use: Yes Hx Substance Use: No Review of Systems Review of Systems: All systems reviewed & are unremarkable except as noted in HPI & below Physical Exam Physical Exam: Physical Exam: Vitals signs as noted above General Appearance:Moderately built and nourished, no apparent distress Head: normocephalic, Atraumatic,+hearing aids Eyes: normal inspection, EOMI Neck: supple, Trachea midline Respiratory/Chest: Normal breath sounds, CTA Cardiovascular: S1, S2, No murmur Abdomen/GI:Soft, Non tender, Bowel sounds present Extremities/Musculoskelatal:normal inspection, no edema Neurologic/Psych:AAOX3, grossly no focal neurological deficits Skin: normal color, warm Results & Data Vital Signs (Past 12 Hours) Vital Signs Temp Pulse Pulse Resp BP BP Pulse Ox 10/03/18 11:24 62 16 157/87 H 96 10/03/18 10:30 99 10/03/18 09:53 36.5 C 96 H 18 159/101 H 99 Laboratory Results Short CBC 10/03/18 Range/Units 10:06 WBC 9.27 (4.8-10.8) K/uL Hgb 15.1 (14.0-18.0) g/dL Hct 42.4 (42-52) % Plt Count 191 (130-400) K/uL BMP 10/03/18 10:06 Sodium 134 L Potassium 3.5 Chloride 99 Carbon Dioxide 25 BUN 17 Creatinine 1.41 H Glucose 102 H Calcium 9.2 Cardiac Enzymes 10/03/18 10/03/18 Range/Units 10:06 10:06 Total Creatine Kinase 704 H Cancelled (39-308) U/L CK-MB (CK-2) 93.0 H Cancelled (0.5-3.6) ng/ml Troponin I 9.190 H* (0-0.045) ng/ml Liver Function 10/03/18 Range/Units 10:06 Total Bilirubin 0.6 (0.2-1) mg/dl AST 74 H (15-37) U/L ALT 24 (12-78) U/L Alkaline Phosphatase 55 (45-117) U/L Albumin 3.8 (3.4-5.0) gm/dl Diagnostic Findings CXR: 1. No acute process. 2. Prior granulomatous disease. ECG Additional Comments: EKG: Normal sinus rhythm with sinus arrhythmia, left axis deviation ST depression in anterior leads QTC:450
[2018-10-03 11:37] LABS: Prothrombin Time 10.7 Seconds (9.0-12.0)
[2018-10-03] MEDS ORDERED: METOPROLOL TARTRATE 25 MG TAB PO ONE (12:29)
[2018-10-03] MEDS ORDERED: NITROGLYCERIN SL 0.4 MG/TAB TAB SL PRN (13:31)
[2018-10-03] MEDS ORDERED: ONDANSETRON INJ 2 MG/ML 2 ML VIAL IV PRN (13:31)
[2018-10-03] MEDS ORDERED: POLYETHYLENE (MIRALAX) 17 GM PACK PO PRN (13:31)
[2018-10-03] MEDS ORDERED: ACETAMINOPHEN 325 MG TAB PO PRN (13:31)
[2018-10-03] MEDS: NSS + 20MEQ KCL 20 MEQ/1,000 ML BAG IV SCH (14:00)
[2018-10-03] MEDS: Heparin IV Standard *NO* Bolus IV SCH ×3 (14:05→18:49)
--- NOTE | 2018-10-03 15:43 | Cardiology Consultation ---
Date of Consultation October 03, 2018 Assessment & Plan (1) NSTEMI (non-ST elevated myocardial infarction): At present, the patient is completely comfortable and asymptomatic. Based on EKG findings from this morning, elevated troponin, together with his risk factors of age hypertension and chronic kidney disease of speculate that he has had a non-ST segment myocardial infarction due to underlying atherosclerotic coronary heart disease. It is reassuring that his echocardiogram reveals normal LVEF without regional wall motion abnormalities. We will proceed with aspirin, metoprolol tartrate, atorvastatin and unfractioned heparin. His most recent LDL cholesterol on 09/01/2018 was 113, proceed with statin therapy pending visualization of the coronaries. Trend enzymes. Patient to be n.p.o. after midnight. I discussed the benefits and risks of cardiac catheterization with him, and he is leaning toward proceeding with this. Alternative cause of his elevated troponin is possible. An erythrocyte sedimentation rate has been requested, although he certainly does not have echocardiogram findings or symptoms to suggest myocarditis. 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 His outpatient chart describes that he had a right testicular seminoma removed (right orchiectomy) he by Dr. Tate urology in 1995 and underwent chemotherapy with Platinol, RUBBER TURNER, and bleomycin. 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 Per review of outpatient blood work he has a stage III chronic kidney disease and his creatinine has typically in the range of 1.6-1.9 with GFR in the range of 38-31 mL/min/m. At present, his creatinine today was 1.45 with calculated GFR of 45 mL/min/m. I discussed the potential risk of nephrotoxicity with cardiac catheterization, but given his stable renal function, would still recommend proceeding. I would place him on IV fluids tonight in preparation for cardiac catheterization. (3) HTN (hypertension): Hold home dose of diltiazem in favor of metoprolol. 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 Jackelyn Rosario for evaluation of a non-ST segment elevation myocardial infarction. The patient's primary care provider is Dr. Beto Mills of [facility]. He has not seen cardiology in the past. The patient's recent history dates back to about a month ago when he describes that he had a screening test for Lyme disease. He lives in [place] with his spouse and spends a great deal of time outdoors. He describes that he has been a runner for 40 years, and typically jogs a mile per day. 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 Due to his risk factors, he had a Lyme screen blood test about a month ago which was positive. This led to a 3-week course of doxycycline. The patient states that he felt generalized illness on the doxycycline including what he describes as waxing and waning pains in his upper chest under his collarbones. This culminated in a recent focal discomfort that would come on at rest under his right clavicle. It persisted last evening to the point that he was not able to rest well and therefore he came to the hospital. An EKG revealed ST segment depression in the anteroseptal leads which was new compared to his prior tracing performed as an outpatient at [facility] in 2013. Troponin was performed which was elevated at 9.19 NG per mL, the CPK was also elevated 704 units/L, and the MB fraction was elevated as well. During my assessment of the patient once he arrived to the PCU he was comfortable. An echocardiogram had already been performed revealing no evidence of pericardial effusion, and normal left ventricular wall motion and normal LVEF. Allergies Allergy/AdvReac Type Severity Reaction Status Date / Time Cipro Allergy Severe RASH Unverified 04/23/16 14:46 ciprofloxacin Allergy Severe RASH Unverified 10/03/18 10:21 wheat Allergy Intermediate VOMITTING/I Unverified 10/03/18 10:21 NDIGESTION Quinolones Allergy Mild Verified 10/03/18 10:21 Home Medications Home Medications Medication Instructions Recorded Confirmed Type diltiazem HCl 120 mg PO QAM #0 cap 04/23/16 10/03/18 History A-C-E-zinc ox-cupric ox-lutein 1 - 2 tab PO PM 10/03/18 10/03/18 History [[facility]] Lactobac 40-Bifido 3-S.thermop 1 cap PO PM 10/03/18 10/03/18 History [Probiotic] coenzyme Q10 [CoQ-10] 30 mg PO PM 10/03/18 10/03/18 History garlic 500 mg PO PM 10/03/18 10/03/18 History lutein 20 mg PO PM 10/03/18 10/03/18 History multivitamin 1 tab PO QAM 10/03/18 10/03/18 History omega 7-hhm-mhy-fish oil [Fish Oil] 1 cap PO PM 10/03/18 10/03/18 History Patient History Social History Preferred Language: Latvian Communication Ability: Effective Medical Art Therapist Required: No Beliefs That Will Affect Care: None Current Living Situation: Spouse Other Information That Helps Us Care for You: No Feels Safe at Home: Yes Safety Concerns: Feels Safe At This Time Smoking Status: Never smoker Do You Dip or Chew Tobacco: No Second Hand Exposure: No Tobacco Cessation Education Requested by Patient: No Hx Alcohol Use: No Hx Substance Use: No Review of Systems Review of Systems: All systems reviewed & are unremarkable except as noted in HPI & below Physical Exam Physical Exam: Temp Pulse Resp BP Pulse Ox 36.5 C 62 18 159/84 H 98 10/03/18 13:31 10/03/18 13:46 10/03/18 13:31 10/03/18 13:31 10/03/18 13:31 Constitutional: WD/WN, vitals as above Neck: trachea midline, no thyromegaly Respiratory: normal respiratory effort, lungs clear to auscultation Cardiovascular: RRR, no murmur, no edema Vessels: no JVD Extremities: no edema Gastrointestinal (Abdomen): normal bowel sounds, soft, nontender, no hepatosplenomegaly Neurologic: PERRL, EOMI, accommodation nl, no face palsy, no dysarthria Results & Data Vital Signs (Past 12 Hours) Vital Signs Temp Pulse Pulse Resp BP BP Pulse Ox 10/03/18 13:46 62 10/03/18 13:31 36.5 C 59 L 18 159/84 H 10/03/18 12:46 69 16 163/98 H 10/03/18 11:24 62 16 157/87 H 96 10/03/18 10:30 99 10/03/18 09:53 36.5 C 96 H 18 159/101 H 99 Pulse Ox 10/03/18 13:46 07/07/19 13:31 98 10/03/18 12:46 10/03/18 11:24 10/03/18 10:30 10/03/18 09:53 Laboratory Results Cardiac Enzymes 10/03/18 10/03/18 Range/Units 10:06 10:06 AST 74 H (15-37) U/L CK-MB (CK-2) 93.0 H Cancelled (0.5-3.6) ng/ml Troponin I 9.190 H* (0-0.045) ng/ml Coagulation 10/03/18 Range/Units 10:06 PT 10.7 (9.0-12.0) Seconds CBC 10/03/18 Range/Units 10:06 WBC 9.27 (4.8-10.8) K/uL RBC 4.59 L (4.7-6.1) M/uL Hgb 15.1 (14.0-18.0) g/dL Hct 42.4 (42-52) % Plt Count 191 (130-400) K/uL Neut # (Auto) 6.49 (1.4-6.5) K/uL Lymph # (Auto) 2.14 (1.2-3.4) K/uL [place] # (Auto) 0.53 (0.11-0.59) K/uL Eos # (Auto) 0.06 (0-0.5) K/uL Baso # (Auto) 0.03 (0-0.2) K/uL Comprehensive Metabolic Panel 10/03/18 Range/Units 10:06 Sodium 134 L (136-145) mmol/L Potassium 3.5 (3.5-5.1) mmol/L Chloride 99 (98-107) mmol/L Carbon Dioxide 25 (21-32) mmol/L BUN 17 (7-18) mg/dl Creatinine 1.41 H (0.6-1.4) mg/dl Glucose 102 H (70-99) mg/dl Calcium 9.2 (8.5-10.1) mg/dl AST 74 H (15-37) U/L ALT 24 (12-78) U/L Alkaline Phosphatase 55 (45-117) U/L Total Protein 7.3 (6.4-8.2) gm/dl Albumin 3.8 (3.4-5.0) gm/dl Intake and Output 10/03/18 10/03/18 10/03/18 06:59 14:59 22:59 Intake Total 460 / 460 Output Total 500 / 500 Balance -40 / -40 Intake: Oral 460 / 460 Output: Urine 500 / 500 Other: Weight 66 kg Patient Weight 10/04/18 06:59 Weight 66 kg Diagnostic Findings Electrocardiogram was performed on 10/03/2018 at 9:57 AM revealing sinus rhythm at [address] segment depression in the leads V2 to V4 suggestive of ischemia. Compared to the prior tracing performed at the hospital in 2007, ST segment depression is now noted in the anterior leads. This is also new compared to an outpatient tracing performed in 2013 per direct comparison. Repeat EKG performed on 10/03/2018 at 1514: The previously noted anterior ST depression has improved, nonspecific lateral T wave flattening is noted in the lateral precordial leads, and T wave inversion is noted in aVL .
[2018-10-03] MEDS: Heparin Adult STANDARD Wt-Based Dextrose 5% 25,000 units/500 mL IV SCH ×2 (16:00→18:49)
[2018-10-03 18:00] LABS: Partial Thromboplastin Ratio 2.6
[2018-10-03 18:04] LABS: Partial Thromboplastin Time 70.4 Seconds (21.0-31.0)
[2018-10-03] MEDS ORDERED: FAMOTIDINE 20MG/5ML IV PUSH IV STA (20:07)
[2018-10-03] MEDS ORDERED: ALUMINUM/MAGNESIUM/SIMETH (MAALOX MAX) 30 ML UDC PO PRN (20:08)
[2018-10-03] MEDS ORDERED: FAMOTIDINE 20 MG in SYRINGE 3 ML IV STA (20:10)
[2018-10-03] MEDS: METOPROLOL TARTRATE 25 MG TAB PO SCH (20:18)
[2018-10-03] MEDS ORDERED: SODIUM CHLORIDE 0.9% 1000ML 1,000 ML IV SCH (23:59)
[2018-10-04 00:54] LABS: Partial Thromboplastin Ratio 3.8
[2018-10-04 00:59] LABS: Partial Thromboplastin Time 103.4 Seconds (21.0-31.0)
[2018-10-04 04:14] LABS: Hematocrit (blood only) 39.6 % (42-52); Mean Corpuscular Hgb Conc 35.4 g/dL (32-36); Mean Corpuscular Volume 90.6 fL (80-100); Platelet Count 168 K/uL (130-400); RDW Coefficient of Variation 13.4 % (11.5-14.5); RDW Standard Deviation 44.3 fL (36.4-46.3); Red Blood Count 4.37 M/uL (4.7-6.1); White Blood Count 8.94 K/uL (4.8-10.8)
[2018-10-04 04:32] LABS: Albumin Level 3.1 gm/dl (3.4-5.0); BUN Creatinine Ratio 12.1 (10-20); Calcium 8.4 mg/dl (8.5-10.1); Creatinine Clr Calc Pharmacy 41.2 ml/min; Est GFR (African American) 62.7; Est GFR (Non-African American) 54.1; Magnesium 1.9 mg/dl (1.8-2.4); Potassium 3.7 mmol/L (3.5-5.1)
[2018-10-04 04:43] LABS: Bilirubin Direct 0.1 mg/dl (0-0.2); Bilirubin,Total 0.6 mg/dl (0.2-1); Total Protein 6.2 gm/dl (6.4-8.2); Troponin I 30.2 ng/ml (0-0.045)
[2018-10-04 06:31] LABS: Estimated Average Glucose 120 mg/dl; Hemoglobin A1C 5.8 % (4.5-5.6)
[2018-10-04 08:12] LABS: Partial Thromboplastin Ratio 3.1
[2018-10-04 08:16] LABS: Partial Thromboplastin Time 83.2 Seconds (21.0-31.0)
[2018-10-04] MEDS: ASPIRIN 81 MG ECTAB PO SCH (08:57)
[2018-10-04] MEDS: FAMOTIDINE 20 MG TAB PO SCH ×2 (08:57→21:10)
[2018-10-04] MEDS: ATORVASTATIN 40 MG TAB PO SCH (08:57)
[2018-10-04] MEDS: METOPROLOL TARTRATE 25 MG TAB PO SCH ×2 (08:57→21:12)
[2018-10-04] MEDS ORDERED: SODIUM CHLORIDE 0.9% 1000ML 1,000 ML IV SCH (09:00)
--- NOTE | 2018-10-04 09:09 | Cardiology Progress Note ---
Date of Service October 04, 2018 Assessment & Plan (1) NSTEMI (non-ST elevated myocardial infarction): The patient will require cardiac catheterization. I have explained the risk benefit and intent to the procedure to him and he is willing to proceed. The cardiac catheterization will be scheduled for later this morning. He does have essentially a solitary kidney due to his history of testicular cancer and we will start hydration and limit our x-ray dye were possible. 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 His outpatient chart describes that he had a right testicular seminoma removed (right orchiectomy) he by Dr. Tate urology in 1995 and underwent chemotherapy with Platinol, CHEESE PACKER, and bleomycin. 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 Per review of outpatient blood work he has a stage III chronic kidney disease and his creatinine has typically in the range of 1.6-1.9 with GFR in the range of 38-31 mL/min/m. At present, his creatinine today was 1.45 with calculated GFR of 45 mL/min/m. I discussed the potential risk of nephrotoxicity with cardiac catheterization, but given his stable renal function, would still recommend proceeding. I would place him on IV fluids tonight in preparation for cardiac catheterization. (3) HTN (hypertension): Hold home dose of diltiazem in favor of metoprolol. Subjective The patient has not had any further chest pain since admission however his cardiac troponins have continued to elevate and I believe he would benefit from a cardiac catheterization. Review of Systems Review of Systems: All systems reviewed & are unremarkable except as noted in HPI & below No additional Physical Exam Physical Exam: General: no acute distress and stated age Head: normocephalic, no masses, lesions, tenderness or abnormalities Eyes: conjunctiva are pink and non-injected, sclera clear Neck: supple, no adenopathy, no bruits, normal jugular venous pulse, no hepatojugular reflux Chest: normal shape and normal respiratory effort Lungs: clear to auscultation and percussion Cardiac Exam: - regular rate & rhythm, no murmurs gallops or rubs - normal S1, normal S2 Pulses: 2(+) throughout Abdomen: abdomen soft, non-tender, no abnormal masses and no hepatosplenomegaly Musculoskeletal: no gait disturbance, no joint inflammation, no deforming arthritis Extremities: no edema and no cyanosis Neuro: grossly normal exam Results & Data Vital Signs (Past 12 Hours) Vital Signs Temp Pulse Resp BP BP Pulse Ox 10/04/18 06:59 36.4 C L 58 L 18 122/76 99 10/04/18 03:33 36.4 C L 56 L 16 145/82 H 97 10/03/18 23:30 36.8 C 52 L 18 150/76 H 97 10/03/18 21:07 61
[2018-10-04] MEDS: NSS + 20MEQ KCL 20 MEQ/1,000 ML BAG IV SCH (10:19)
[2018-10-04] MEDS ORDERED: fentaNYL citrate 100 MCG/2 ML VIAL ONE (10:32)
[2018-10-04] MEDS ORDERED: MIDAZOLAM HCL 1 MG/ML 2ML VIAL ONE (10:32)
[2018-10-04] MEDS ORDERED: HEPARIN (PORCINE) 1000 UNIT/ML 10 ML (CATH LAB USE ONLY) ONE (10:33)
[2018-10-04] MEDS ORDERED: NiCARDipine HCL INJ 2.5 MG/ML 10 ML AMP ONE (10:33)
[2018-10-04] MEDS ORDERED: NITROGLYCERIN/D5W 100MCG/ML 20ML SYR ONE (10:33)
[2018-10-04] MEDS ORDERED: CLOPIDOGREL BISULFATE 300 MG TAB ONE (12:08)
--- NOTE | 2018-10-04 12:19 | Post Anesthesia Assessment ---
Date of Service October 04, 2018 Post Sedation Assessment Vital Signs Temp Pulse Pulse Resp BP BP Pulse Ox 10/04/18 06:59 36.4 C L 58 L 18 122/76 99 10/04/18 03:33 36.4 C L 56 L 16 145/82 H 97 10/03/18 23:30 36.8 C 52 L 18 150/76 H 97 10/03/18 21:07 61 10/03/18 20:00 36.6 C 54 L 20 155/85 H 98 10/03/18 15:13 36.6 C 56 L 18 158/89 H 99 10/03/18 13:46 62 10/03/18 13:31 36.5 C 59 L 18 159/84 H 10/03/18 12:46 69 16 163/98 H Pulse Ox 10/04/18 06:59 10/04/18 03:33 10/03/18 23:30 10/03/18 21:07 10/03/18 20:00 10/03/18 15:13 10/03/18 13:46 10/03/18 13:31 98 10/03/18 12:46 Recovery Score Activity: Moves 4 extremities Respiration: Deep Breath/Cough Circulation: +/-20% PreAnes Value Consciousness: Fully Awake Oxygen Saturation: O2 needed for >90% Discharge Sedation Level of Care: Fast Track Phase II Post Sedation Plan On clinical assessment, the patient appears to have tolerated the sedation without complications. Patient is recovering as anticipated. Patient will continue to be monitored by nursing and may be discharged when sedation discharge criteria are met per below protocol. Upon Completions of procedure and additional 15 minutes continue every 5 minute vital signs and the P.A.R. score; then discharge to a Phase I or Fast Track to Phase II per the following guidelines: * Discharge Patient to appropriate Phase II area if PAR is 8 or greater or return to pre- procedure baseline. The post - procedure orders will be as directed. * If PAR score is less than 8 or not return to pre-procedure baseline then patient will follow Phase I monitoring till PAR is reached for Phase II. The Phase I may be done in procedure room or may call to secure a Phase I area. * If naloxone or flumazenil are used for reversal, hold in Phase I for continued monitoring from when last reversal dose was given for a minimum of 60 minutes or longer pending the nurse and/or physician discretion of patient condition before discharge to Phase II. Please call the Sedation Physician to re-evaluate and complete post-note for discharge to Phase II area. Do NOT discharge from procedure sedation or Phase 1 until post- sedation evaluation note is complete by procedure /sedation MD Sedation Discharge Instructions to be given to the patient at discharge to home.
--- NOTE | 2018-10-04 12:25 | Cardiac Catheterization ---
Cardiac Cath Procedure Full Procedure Date October 04, 2018 Pre-Procedure Diagnosis Pre-Procedure Diagnosis: Non STEMI AUC Score AUC Score: 8 Post-Procedure Diagnosis Post-Procedure Diagnosis: Severe CAD and Successful PCI Procedure(s) Performed Procedure(s) Performed: Coronary Angiography and Drug Eluting Stent Sheet Ironworker Mp Rocha MD Manager Federal(s) Tawnya Estimated Blood Loss Estimated Blood Loss: 15 Medication(s) Medication(s): Clopidogrel, Fentanyl, Heparin, Nicardipine, Nitroglycerin and Versed Summary of Findings Indication: High risk NSTEMI Access: 6 Fr right common femoral artery Catheters: EBU 3.5 guide Findings: For full details of patient's coronary angiography please cath report dictated by Dr. Payne. Briefly, patient found to have an acutely occluded proximal first obtuse marginal. Decision to proceed with PCI. -- PCI -- Antithrombotic therapy: Heparin, clopidogrel Procedure: Left main cannulated with EBU 3.5 guide Railroad Operator 50 wire passed across lesion into distal vessel Proximal OM 1 lesion predilated with 2.0 compliant balloon Dilated lesion stented with 2.25 x 15 mm [place] drug-eluting stent IC vasodilators administered for spasm Post procedure MAXIMO 3 flow, stent well expanded with minimal residual stenosis and no apparent cardiac complications. Arterial Closure: Mynx Summary: 1. Successful PCI of proximal OM1 with single drug-eluting stent (2.25 x 15 mm [place]). Recommendations: To PCU for continued monitoring Loaded with clopidogrel 600 mg in director of labor relations Continue dual-antiplatelet therapy for at least one year Continue statin, and ASCVD risk factor modification Consult cardiac Rehab Hemodynamics Rest Ao:: 100/45/69 Final Ao: 83/46/62 LV: -- Recommendations Recommendations: PCI without planned CABG Specimens Specimens: None Radiation Exposure (mGy) 1758 Contrast (mls) 85 Fluids (cc crystalloids) Fluids (cc crystalloids): 100 Drains Drains: None Anesthesia Moderate Procedural Complication(s) None Disposition PCU ACC Data: Press Loader Cardiac Status Clinical evaluation leading to the procedure CAD Presenation: Non STEMI Anginal Classification: CCS IV Heart Failure: No Cardiogenic Shock within 24 Hours: No Cardiac Arrest within 24 Hours: No Imaging Studies Past 6 Months: Yes Stress Studies Past 6 Months: No Diagnostic Physicians Name: Mp Rocha MD Status: Elective Closure Device Percutaneous Entry Location: Radial Closure Device: Radial Band Recommendations: PCI without planned CABG PCI Indication: PCI for high risk Non-MELISA Lesion Segment Name: OM1 Culprit Artery: Yes Stenosis Prior to Rx (%): 100 Chronic Total Occlusion: No IVUS: No FFR: No Pre-Procedure MAXIMO Flow: 0 Previously Treated Lesion: No Lesion Complexity: Non-High/Non-C Lesion Length (mm): 12 Thrombus Present: Yes Bifurcation Lesion: No Guidewire Across Lesion: Stenosis Post-Procedure (%): 0 Post-Procedure MAXIMO Flow: 3 Devices(s) Deployed: Yes Yes Intraprocedure Events Significant Disection: No Perforation: No
--- NOTE | 2018-10-04 12:43 | Cardiac Catheterization ---
Date of Service October 04, 2018 Cardiac Cath Report Cardiac Cath Report History: This is an 83-year-old male patient who presented with a non-STEMI Procedure: Coronary angiography Procedure summary: After informed consent was obtained the patient was taken to the cardiac catheterization lab where access was attempted to the right radial artery. Unfortunately, the wire would not advance and therefore the radial artery was abandoned for a right transfemoral approach. Preformed 5 [place] diagnostic catheters were utilized for the coronary angiograms. Following the procedure the patient underwent coronary intervention and was returned to his room in stable condition. ACC data: Start time 11:15 AM End time 12:12 AM Opening aortic pressure 129/54 Closing aortic pressure 83/46 Left ventricular pressurevalve not crossed Sedation 2 mg of intravenous Versed and 25 mcg of fentanyl IV fluid 100 cc normal saline Contrast 163 cc VISI pack Fluoroscopy time 8.5 minutes Radiation 1758 mGy DAP 11,406 mGy/m Right dominant artery AUC score 9 Coronary angiography: Selective injections of the left coronary artery revealed tapering of the distal left main with mild diffuse disease. The left circumflex artery consists of a large posterior marginal branch and a high ramus branch. The high ramus branch is occluded in its proximal segment. The LAD gives off a single large first diagonal branch. The LAD has minor nonobstructive coronary artery disease. Selective injections of the right coronary artery reveal it to be dominant. The right coronary artery has diffuse moderate disease in its mid segment. Summary: The index artery is the ramus branch from the left circumflex artery with the remainder the coronary anatomy having mild to moderate diffuse disease Recommendations: Recommendations are for coronary intervention on the ramus artery.
--- NOTE | 2018-10-04 18:48 | Hospitalist Progress Note ---
Date of Service October 04, 2018 Assessment & Plan (1) NSTEMI (non-ST elevated myocardial infarction): Present on admission with chest pain Risk factors: HTN, family history of heart disease Initial troponin:Elevated at 9.1, then peak to [address] depression in anterior leads Pt was starting on heparin drip ECHO showed no segmental wall motion abnormality with EF btw 55 to 60 % Cardiology on board S/P cardiac cath with successful PCI of proximal OM1 with single drug-eluting stent Continue dual-antiplatelet therapy with aspirin and plavix for at least one year Continue statin, metoprolol and ASCVD risk factor modification Consult cardiac Rehab Continue monitor in tele Check Troponin in am Memory Problems: No focal deficits on exam TSH, vitamin B12 WNL Stable CKD III: Cr improved at 1.22 Avoid nephrotoxic agents as able Monitor renal function On Gentle IVF Monitor BMP H/O metastatic Testicular Cancer S/P Orchiectomy, chemotherapy Followed with and in the past Hypertension BP controlled Continue metoprolol Monitor BP DVT Px: Heparin drip discontinued On heparin drip Code Status: Full Code Disposition: Continue monitor in tele Subjective Pt was seen and examined Lying in bed with no distress with at bedside Pt said that he feels much better now He denies any chest pain, palpitation and SOB Physical Exam Physical Exam: General- No acute distress Head- atraumatic Eyes- PERRL, EOMI, ENT- Decrease hearing function Neck- supple, no JVD Lungs- clear to auscultation Heart- regular rhythm; no murmur Abdomen- normal bowel sounds, soft, nontender Extremities- no calf tenderness, right inguinal area with dressing one with minimal blood Neuro- alert, oriented x 3; PERRL, EOMI; no facial palsy; no dysarthria Skin- warm & dry Results & Data Vital Signs (Past 12 Hours) Vital Signs Temp Pulse Resp BP Pulse Ox Pulse Ox 10/04/18 15:28 36.4 C L 55 L 19 110/69 98 10/04/18 14:50 52 L 18 113/71 98 10/04/18 14:35 51 L 105/67 10/04/18 14:20 52 L 18 103/65 100 10/04/18 14:02 50 L 18 106/69 98 10/04/18 13:48 49 L 16 107/68 99 10/04/18 13:41 52 L 18 118/72 98 10/04/18 13:31 52 L 18 114/69 99 98 10/04/18 13:11 52 L 16 124/76 98 10/04/18 12:56 55 L 18 105/67 97 10/04/18 12:41 52 L 18 111/68 98 10/04/18 12:26 36.9 C 58 L 16 114/69 98 10/04/18 06:59 36.4 C L 58 L 18 122/76 99
[2018-10-04] MEDS ORDERED: SODIUM CHLORIDE 0.9% 1000ML 250 ML IV ONE (19:22)
[2018-10-04] MEDS: SODIUM CHLORIDE 0.9% 1000ML 1,000 ML IV SCH (19:30)
[2018-10-05] MEDS: SODIUM CHLORIDE 0.9% 1000ML 1,000 ML IV SCH (04:14)
[2018-10-05 07:41] LABS: BUN Creatinine Ratio 13.9 (10-20); Calcium 8.2 mg/dl (8.5-10.1); Creatinine Clr Calc Pharmacy 36.7 ml/min; Est GFR (African American) 53.1; Est GFR (Non-African American) 45.8; Potassium 4.1 mmol/L (3.5-5.1)
[2018-10-05 07:46] LABS: Troponin I 18.9 ng/ml (0-0.045)
[2018-10-05] MEDS: ASPIRIN 81 MG ECTAB PO SCH (07:49)
[2018-10-05] MEDS: FAMOTIDINE 20 MG TAB PO SCH (07:49)
[2018-10-05] MEDS: ATORVASTATIN 40 MG TAB PO SCH (07:49)
[2018-10-05] MEDS: METOPROLOL TARTRATE 25 MG TAB PO SCH (07:49)
[2018-10-05] MEDS ORDERED: CLOPIDOGREL BISULFATE 75 MG TAB PO SCH (09:00)
[2018-10-05] MEDS: Heparin IV Standard *NO* Bolus IV SCH ×3 (09:21→10:16)
--- NOTE | 2018-10-05 11:32 | Hospitalist Progress Note ---
Date of Service October 05, 2018 Assessment & Plan (1) NSTEMI (non-ST elevated myocardial infarction): Present on admission with chest pain Risk factors: HTN, family history of heart disease Initial troponin:Elevated at 9.1, then peak to 30. Troponin dropped to [address] depression in anterior leads Pt was starting on heparin drip ECHO showed no segmental wall motion abnormality with EF btw 55 to 60 % Cardiology on board S/P cardiac cath with successful PCI of proximal OM1 with single drug-eluting stent Continue dual-antiplatelet therapy with aspirin and plavix for at least one year Continue statin, metoprolol and ASCVD risk factor modification Case discussed with cardiology and ok from cardiology standpoint to discharge home Consult cardiac Rehab Memory Problems: No focal deficits on exam TSH, vitamin B12 WNL Stable CKD III: Cr improved at 1.22 Avoid nephrotoxic agents as able Monitor renal function On Gentle IVF Monitor BMP H/O metastatic Testicular Cancer S/P Orchiectomy, chemotherapy Followed with and in the past Hypertension BP controlled Continue metoprolol Monitor BP DVT Px: Heparin drip discontinued On heparin drip Code Status: Full Code Disposition: Discharge home today Follow up with PCP Dr. Ugarte on 10/11 @ 9:45 AM Follow up with cardiology Subjective Pt was seen and examined Lying in bed with no distress Pt said that he feels fine this morning Early today he was feeling a little dizzy, but after moving around in his room he said that he feels much better He has been walking to the bathroom alone with no discomfort Denies any chest pain, palpitation, dizziness and SOB Physical Exam Physical Exam: General- No acute distress Head- atraumatic Eyes- PERRL, EOMI, ENT- Decrease hearing function Neck- supple, no JVD Lungs- clear to auscultation Heart- regular rhythm; no murmur Abdomen- normal bowel sounds, soft, nontender Extremities- no calf tenderness, No hematoma in right inguinal area Neuro- alert, oriented x 3; PERRL, EOMI; no facial palsy; no dysarthria Skin- warm & dry Results & Data Vital Signs (Past 12 Hours) Vital Signs Temp Pulse Pulse Resp BP BP Pulse Ox 10/05/18 11:19 59 L 20 118/76 100 10/05/18 10:25 36.5 C 70 18 107/68 105/64 98 10/05/18 10:05 107/68 10/05/18 10:00 70 86/59 L 10/05/18 06:45 36.5 C 61 18 131/77 98 10/05/18 02:30 36.7 C 90 18 105/64 97 10/05/18 00:00 65 10/04/18 23:32 36.8 C 64 18 107/64 95
--- NOTE | 2018-10-05 11:53 | Cardiology Progress Note ---
Date of Service October 05, 2018 Assessment & Plan (1) NSTEMI (non-ST elevated myocardial infarction): The patient underwent a cardiac catheterization yesterday. That revealed an occlusion of high ramus branch from the left circumflex artery as the index artery. It was successfully recannulated and coronary stents were placed. There was some mild bleeding from the cath site late yesterday afternoon. Today the patient has no complaints. The cath site is clean and dry without evidence of hematoma or bruit. He is ready to be discharged home to outpatient follow-up and I will make those arrangements. (2) CKD (chronic kidney disease), stage III: Today's lab indicates the patient's renal disease is stable. (3) HTN (hypertension): Hold home dose of diltiazem in favor of metoprolol. Subjective The patient had some minor bleeding post coronary intervention. Today he has no bleeding and there is no sign of a hematoma at the femoral artery cath site. No ecchymosis. No bruit. The patient feels well and has been ambulating without difficulty. Review of Systems Review of Systems: All systems reviewed & are unremarkable except as noted in HPI & below Nothing additional Physical Exam Physical Exam: General: no acute distress and stated age Head: normocephalic, no masses, lesions, tenderness or abnormalities Eyes: conjunctiva are pink and non-injected, sclera clear Neck: supple, no adenopathy, no bruits, normal jugular venous pulse, no hepatojugular reflux Chest: normal shape and normal respiratory effort Lungs: clear to auscultation and percussion Cardiac Exam: - regular rate & rhythm, no murmurs gallops or rubs - normal S1, normal S2 Pulses: 2(+) throughout Abdomen: abdomen soft, non-tender, no abnormal masses and no hepatosplenomegaly Musculoskeletal: no gait disturbance, no joint inflammation, no deforming arthritis Extremities: Right femoral artery cath site is clean and dry without evidence of hematoma and no bruit to auscultation. Neuro: grossly normal exam Results & Data Vital Signs (Past 12 Hours) Vital Signs Temp Pulse Pulse Resp BP BP Pulse Ox 10/05/18 11:19 59 L 20 118/76 100 10/05/18 10:25 36.5 C 70 18 107/68 105/64 98 10/05/18 10:05 107/68 10/05/18 10:00 70 86/59 L 10/05/18 06:45 36.5 C 61 18 131/77 98 10/05/18 02:30 36.7 C 90 18 105/64 97 10/05/18 00:00 65 Laboratory Results Laboratory Results - last 24 hr 10/04/18 10/05/18 11:59 06:53 Activ Coag Time Kaolin 274 H Sodium 136 Potassium 4.1 Chloride 106 Carbon Dioxide 24 Anion Gap 6.0 BUN 19 H Creatinine 1.40 Est Cr Clr Drug Dosing 36.7 Est GFR ( Amer) 53.1 Est GFR (Non-Af Amer) 45.8 BUN/Creatinine Ratio 13.9 Glucose 82 Calcium 8.2 L Troponin I 18.900 H* Medications Administered Current Inpatient Medications Acetaminophen (Tylenol) 650 mg PO Q4H PRN PRN Reason: Pain or Fever Stop: 11/02/18 13:30 Al Hydrox/Mg Hydrox/Simethicone (Maalox Max) 15 ml PO Q6H PRN PRN Reason: Dyspepsia Stop: 11/02/18 20:07 Last Admin: 10/03/18 20:18 Dose: 15 ml Documented by: Aspirin (Ecotrin Ectab) 81 mg PO [facility] Stop: 11/03/18 08:59 Last Admin: 10/05/18 07:49 Dose: 81 mg Documented by: Atorvastatin Cal[facility] ([facility]) [facility] [place] Stop: 11/03/18 08:59 Last Admin: 10/05/18 07:49 Dose: 40 mg Documented by: Clopidogrel Bisulfate (Plavix) 75 mg PO [facility] Stop: 11/04/18 08:59 Last Admin: 10/05/18 07:49 Dose: 75 mg Documented by: Famotidine (Pepcid) 20 mg PO BID [facility] Stop: 11/03/18 08:59 Last Admin: 10/05/18 07:49 Dose: 20 mg Documented by: Metoprolol Tartrate (Lopressor) 25 mg PO BID [facility] Stop: 11/02/18 20:59 Last Admin: 10/05/18 07:49 Dose: 25 mg Documented by: Nitroglycerin (Nitrostat) 0.4 mg SL UD PRN PRN Reason: Chest Pain Stop: 11/02/18 13:30 Ondansetron HCl (Zofran) 4 mg IV Q6H PRN PRN Reason: Nausea Stop: 11/02/18 13:30 Polyethylene Glycol (Miralax Powder Packet) 17 gm PO DAILY PRN PRN Reason: Constipation Stop: 11/02/18 13:30
--- NOTE | 2018-10-07 08:36 | Discharge Summary ---
Date of Service October 05, 2018 Admission HPI Per Admitting Provider Patient is an 83-year-old male with history of hypertension, CKD stage III, testicular cancer, colon cancer, hearing loss and other problems presents for evaluation of right-sided chest pain, generalized weakness, "mental fuzziness", forgetfulness. Patient describes chest pain to be like heaviness, intermittent and reproducible. He had a 2-3 episodes of right-sided chest pain last week. He states it has been progressively getting worse last night. He states the chest pain is located on right infraclavicular region. Reports associated nausea but denies vomiting. He was diagnosed to have Lyme's disease 4 weeks ago and has completed 3-week course of doxycycline. He states having intermittent nausea, dizziness while taking the doxycycline but currently dizziness resolved. Patient's family also reports that patient has been forgetful, has been napping 1-2 times per day which is unusual for him since being diagnosed to have Lyme's disease. Denies any history of SOB, palpitations, pedal edema, diaphoresis, cough, fever, chills, headache, change in vision, vomiting, abdominal pain, blood in stools, diarrhea, dysuria, recent change in medications. He was noted to have elevated troponin levels, and ST depression in anterior leads. Patient was started on heparin while in ED. Admission Exam Per Admitting Provider Vitals signs as noted above General Appearance:Moderately built and nourished, no apparent distress Head: normocephalic, Atraumatic,+hearing aids Eyes: normal inspection, EOMI Neck: supple, Trachea midline Respiratory/Chest: Normal breath sounds, CTA Cardiovascular: S1, S2, No murmur Abdomen/GI:Soft, Non tender, Bowel sounds present Extremities/Musculoskelatal:normal inspection, no edema Neurologic/Psych:AAOX3, grossly no focal neurological deficits Skin: normal color, warm Principal Diagnosis NSTEMI (non-ST elevated myocardial infarction) H/O metastatic Testicular Cancer CKD stage 3 HTN Discharge Exam General- No acute distress Head- atraumatic Eyes- PERRL, EOMI, ENT- Decrease hearing function Neck- supple, no JVD Lungs- clear to auscultation Heart- regular rhythm; no murmur Abdomen- normal bowel sounds, soft, nontender Extremities- no calf tenderness, No hematoma in right inguinal area Neuro- alert, oriented x 3; PERRL, EOMI; no facial palsy; no dysarthria Skin- warm & dry Discharge Data Allergies Allergy/AdvReac Type Severity Reaction Status Date / Time Cipro Allergy Severe RASH Unverified 04/23/16 14:46 ciprofloxacin Allergy Severe RASH Unverified 10/03/18 10:21 wheat Allergy Intermediate VOMITTING/I Unverified 10/03/18 10:21 NDIGESTION Quinolones Allergy Mild Verified 10/03/18 10:21 Consultations 10/03/18 11:41 ED Decision to Admit Stat 10/03/18 13:31 Consult Cardiology Routine Consult Case Management - Discharge Planning Routine 10/04/18 12:27 Consult Cardiac Rehabilitation Routine Procedures Performed Operation Date: 10/04/18 11:00 Actual Procedures s Drug Eluting Stent SGl Vessel - Ambrocio Rocha MD s Cineradiography w/Routine Exam - Ambrocio Rocha MD p Cath, Coronaries ONLY (no LV) - Ambrocio Rocha MD Ordered Studies 10/04/18 08:58 CL Cath Imgs for PACS use only Routine XR chest 1V portable HISTORY: 83 years-old Male Chest Pain acute atypical chest pain COMPARISON: Chest radiograph 02/21/2008, CT abdomen and pelvis 04/23/2016 TECHNIQUE: Portable AP view of the chest FINDINGS: Cardiomediastinal and hilar silhouettes are within normal limits. Unchanged calcified granuloma of the right lower lobe. Probable additional calcified granuloma of the left lung base, 4 mm. No pneumothorax, pleural effusion, focal airspace consolidation or overt pulmonary edema. Degenerative changes of the shoulders and spine. IMPRESSION: 1. No acute process. 2. Prior granulomatous disease. The above report was generated using voice recognition software. It may contain grammatical, syntax or spelling errors. Electronically signed by: Dhruv Alexander M.D. 10/03/2018 10:37 AM Dictated: 10/03/18 1035 Transcribed: 10/03/18 1035 Hospital Course (1) NSTEMI (non-ST elevated myocardial infarction): Present on admission with chest pain Risk factors: HTN, family history of heart disease Initial troponin:Elevated at 9.1, then peak to 30. Troponin dropped to [address] depression in anterior leads Pt was starting on heparin drip ECHO showed no segmental wall motion abnormality with EF btw 55 to 60 % Cardiology on board S/P cardiac cath with successful PCI of proximal OM1 with single drug-eluting stent Continue dual-antiplatelet therapy with aspirin and plavix for at least one year Continue statin, metoprolol and ASCVD risk factor modification Case discussed with cardiology and ok from cardiology standpoint to discharge home Consult cardiac Rehab Memory Problems: No focal deficits on exam TSH, vitamin B12 WNL Stable CKD III: Cr improved at 1.22 Avoid nephrotoxic agents as able Monitor renal function On Gentle IVF Monitor BMP H/O metastatic Testicular Cancer S/P Orchiectomy, chemotherapy Followed with and in the past Hypertension BP controlled Continue metoprolol Monitor BP DVT Px: Heparin drip discontinued On heparin drip Code Status: Full Code Disposition: Discharge home today Follow up with PCP Dr. Ugarte on 10/11 @ 9:45 AM Follow up with cardiology Total Time Total Time Spent Total Time Spent (In Minutes): 35 minutes Total Time Includes: Examination of the Patient, Discharge Planning, Medication Reconciliation, Communication With Other Providers and Other Discharge Plan Discharge Items Patient Disposition: Home - Self-Care Reason For Visit: nstemi Discharge Diagnosis: NSTEMI (non-ST elevated myocardial infarction) H/O metastatic Testicular Cancer CKD stage 3 HTN Discharge Goals: Decrease discomfort, Diagnostic testing, Improve function and Increase independence Activity: As commented below Non-emergency contact: Primary Care Provider and General Doc Call non-emergency contact if: you have any medication questions Follow-up/Referrals: Antonio Mills MD [Primary Care Provider] - Diet: Heart Healthy Addtl Provider Instructions: Follow up with your primary care provider Dr. Ugarte on 10/11 @ 9:45 AM Follow up with cardiology with Dr. Payne (Office will call you for the yadi ointment Check liver enzymes in 2 weeks while on the cholesterol medication to monitor your liver enzymes While taking plavix and aspirin, please monitor for any bleeding such as blood in your urine and stools Please notify your physician if you develop any bleeding Famotidine sent for heartburn Diltiazem discontinued Keep the area for the cardiac cath clean and dry to avoid any infection Do not use creams, lotions or ointment on the wound site Do not take a bath, tub soak, go in a Jacuzzi, or swim in a pool or saini for one week after the procedure. You may take showers, but make sure the area where the catheter was inserted does not get wet for the first 24 to 48 hours. Do not participate in strenuous activities, running and long walk for 3 days after the procedure. Gradually increase your activities until you reach your normal activity level within 3 days after the procedure. Avoid heavy lifting (more than 10 pounds) and pushing or pulling heavy objects for the first 5 days after the procedure. Prescriptions: New atorvastatin 40 mg Tablet 40 mg PO QAM 30 Days Qty: 30 RF: 0 clopidogrel 75 mg Tablet 75 mg PO QAM 30 Days Qty: 30 RF: 0 aspirin [Ecotrin Low Strength] 81 mg Tablet,Delayed Release (Dr/Ec) 81 mg PO QAM 30 Days Qty: 30 RF: 0 nitroglycerin [Nitrostat] 0.4 mg Tablet, Sublingual 0.4 mg sublingual UD PRN (Reason: chest pain) Qty: 30 RF: 0 metoprolol tartrate 25 mg Tablet 25 mg PO BID 30 Days Qty: 60 RF: 0 famotidine 20 mg Tablet 20 mg PO DAILY 30 Days Qty: 30 RF: 0 Continued multivitamin Tablet 1 tab PO QAM RF: 0 garlic 500 mg Capsule 500 mg PO PM RF: 0 coenzyme Q10 [CoQ-10] 30 mg Capsule 30 mg PO PM RF: 0 omega 0-ieb-fso-fish oil [Fish Oil] 1,000 mg (120 mg-180 mg) Capsule 1 cap PO PM RF: 0 lutein 20 mg Tablet 20 mg PO PM RF: 0 [facility] 7,160 unit- 113 mg-1 mg Tablet 1 - 2 tab PO PM RF: 0 Probiotic 100 billion cell Capsule 1 cap PO PM RF: 0 Discontinued diltiazem HCl 120 mg Tablet Extended Release 24 Hr 120 mg PO QAM Qty: 0 RF: 0 Stand-Alone Forms: [facility] Discharge Orders: Discharge Order (Routine); Ordered 10/05/18 Ordered By: Carla Lopez Admission Data Admit Date/Time: 10/03/18 12:35 Attending Provider: Carla Lopez Admit Provider: Toño Rosario Primary Care Provider: Antonio Mills Other Providers: Jose M Jain ; Toño Rosario ; Tiffanie Gomez Service: Telemetry Other Interventions: Discharge Summary Assessment (RN) Last Done: 10/05/18 10:25 DC Date/Time DO NOT enter until pt leaves facility: 10/05/18 13:16
== END 2018-10-05 13:16 | disposition home or self-care (01) | DRG 247 ==
LOC: ED 09:52 → 2S 12:35 → SUATTDRO 12:35 → 2S 12:59
PROC: CLB.CCO (2018-10-04 11:00)
DX: I12.9 Hypertensive chronic kidney disease with stage 1 through stage 4 chronic kidney disease, or unspecified chronic kidney disease; N18.3 Chronic kidney disease, stage 3 (moderate); Z82.49 Family history of ischemic heart disease and other diseases of the circulatory system; Z85.49 Personal history of malignant neoplasm of other male genital organs; I21.4 Non-ST elevation (NSTEMI) myocardial infarction; Z88.1 Allergy status to other antibiotic agents